=== PATIENT | female | born 1965 | race Caucasian/White ===

== ENCOUNTER 2018-10-21 16:58 | Emergency (ER) | payer BC ==
[~2018-10-21] VITALS: Ht 157.5 cm; Wt 106.8 kg
[~2018-10-21 16:58] MED LIST: DEXA0.5E2 PO; LIDO20SO PO
[2018-10-21] MEDS ORDERED: HYDROcodone/acetaminophen 10/325mg tab PO ONE (20:20)
[2018-10-21] MEDS ORDERED: TETanus/Pertussis (Acell)/Diphther VAC/PF (Tdap-Adult) 0.5ml syringe IM ONE (20:20)
[2018-10-21 22:06] VITALS: BP 136/80
== END 2018-10-21 22:10 | disposition home or self-care (01) ==
LOC: ER 16:58
DX: S80.01XA Contusion of right knee, initial encounter (principal); S80.212A Abrasion, left knee, initial encounter; I10 Essential (primary) hypertension; Z90.49 Acquired absence of other specified parts of digestive tract; W18.49XA Other slipping, tripping and stumbling without falling, initial encounter; Y93.01 Activity, walking, marching and hiking; Y92.89 Other specified places as the place of occurrence of the external cause; Y99.9 Unspecified external cause status
CPT/HCPCS: 29505; 73564; 73700; 90471; 90715; 99284